=== PATIENT | male | born 2000 | race African-American/Black ===

== ENCOUNTER 2021-08-09 16:56 | Emergency (ER) | payer OTHER, SELFPAY ==
[2021-08-09 17:13] VITALS: BP 129/79; PULSE 74; RESP 18; TEMP 37.2; O2SAT 98; BMI 22.8
--- NOTE | 2021-08-09 17:20 | ED_ITS ---
HPI - Psych General Chief Complaint: Psychiatric Symptoms <Susan Bravo NP - Last Filed: 08/09/21 20:59> Stated Complaint: crisis <Susan Bravo NP - Last Filed: 08/09/21 20:59> Time Seen by Provider: 08/09/21 17:15 <Susan Bravo NP - Last Filed: 08/09/21 20:59> Source: patient and EMS <Susan Bravo NP - Last Filed: 08/09/21 20:59> Mode of arrival: EMS <Susan Bravo NP - Last Filed: 08/09/21 20:59> Limitations: no limitations <Susan Bravo NP - Last Filed: 08/09/21 20:59> History of Present Illness HPI Narrative: 20-year-old male with a past medical history of anxiety and depression not currently taking any medications here with complaints of suicidal thoughts which she has had for ?a long time and ?. He tells me there has been a culmination of events that have caused increased stress/anxiety. No plan. No homicidal ideations or hallucinations. No substance use. No physical complaints. Patient tells me that he currently does not have a therapist or psychiatrist is not on any medications. <Susan Bravo NP - Last Filed: 08/09/21 20:59> Related Data Home Medications: Home Medications Medication Instructions Recorded Confirmed No Known Home Meds 08/09/21 08/09/21 <Susan Bravo NP - Last Filed: 08/09/21 20:59> Allergies/Adverse Reactions: Allergies Allergy/AdvReac Type Severity Reaction Status Date / Time No Known Allergies Allergy Verified 08/09/21 17:17 [No Known Allergies*] <Susan Bravo NP - Last Filed: 08/09/21 20:59> Review of Systems Review of Systems: Yes all other systems are reviewed and are negative <Susan Bravo NP - Last Filed: 08/09/21 20:59> Constitutional: Constitutional: Reports no additional constitutional complaints, Denies body ache(s), Denies chills, Denies fever(s), Denies headache(s) and Denies weakness <Susan Bravo NP - Last Filed: 08/09/21 20:59> Eyes: Eyes: Reports no additional eye complaints and Denies change in vision <Susan Bravo NP - Last Filed: 08/09/21 20:59> ENT: Reports system reviewed and no additional complaints, except as documented, Denies dizziness, Denies headache(s), Denies nasal congestion, Denies nasal discharge and Denies neck pain <Susan Bravo NP - Last Filed: 08/09/21 20:59> Cardiovascular: Cardiovascular: Reports no additional cardiovascular complaints, Denies chest pain, Denies leg edema and Denies dyspnea <Susan Bravo NP - Last Filed: 08/09/21 20:59> Respiratory: Respiratory: Reports no additional respiratory complaints, Denies cough and Denies dyspnea <Susan Bravo [employer] - Last Filed: 08/09/21 20:59> Gastrointestinal: Gastrointestinal: Reports no additional gastrointestinal complaints, Denies abdominal pain, Denies diarrhea, Denies nausea and Denies vomiting <Susan Bravo [employer] - Last Filed: 08/09/21 20:59> Genitourinary: Genitourinary: Denies urinary incontinence <Susan Bravo NP - Last Filed: 08/09/21 20:59> Musculoskeletal: Musculoskeletal: Reports no additional musculoskeletal complaints, Denies back pain, Denies arthralgias, Denies joint swelling, Denies neck pain, Denies numbness and Denies tingling <Susan Bravo NP - Last Filed: 08/09/21 20:59> Integumentary/Breasts: Skin/Breast: Reports system reviewed and no additional complaints, except as docu and Denies rash <Susan Bravo NP - Last Filed: 08/09/21 20:59> Neurologic: Denies Abnormal speech present, Denies dizziness, Denies headache(s), Denies numbness, Denies tingling and Denies weakness <Susan Bravo [employer] - Last Filed: 08/09/21 20:59> Psychiatric: Psychiatric: Denies anxiety, Denies depression, Denies homicidal ideation and Reports suicidal ideation <Susan Bravo NP - Last Filed: 08/09/21 20:59> [facility] Past Medical History Attestation statement: The following information was validated with the patient. <Susan Bravo NP - Last Filed: 08/09/21 20:59> Source: old records reviewed and nursing notes reviewed <Susan Bravo NP - Last Filed: 08/09/21 20:59> Medical History: Medical History Anxiety Asthma Depression <Susan Bravo NP - Last Filed: 08/09/21 20:59> Social History Social History: Social History Alcohol intake: current Alcohol intake frequency: holidays/special occasions only Patient Tobacco Use Status: Current everyday Tobacco user Smoked in Last 30 Days: Yes Use of substances other than those prescribed or required for medical reasons: Yes Substance Use Type: Marijuana Advance Directives: No <Susan Bravo NP - Last Filed: 08/09/21 20:59> Physical Exam Vital Signs: Vital Signs: Last Vital Signs Temp 98.1 F 08/10/21 00:55 Pulse 70 08/10/21 00:55 Resp 18 08/09/21 19:43 BP 142/96 H 08/10/21 00:55 Pulse Ox 97 08/10/21 00:55 Body Mass Index 22.8 <Susan Bravo NP - Last Filed: 08/09/21 20:59> Vital Signs: Last Vital Signs Temp 98.1 F 08/10/21 00:55 Pulse 70 08/10/21 00:55 Resp 18 08/09/21 19:43 BP 142/96 H 08/10/21 00:55 Pulse Ox 97 08/10/21 00:55 Body Mass Index 22.8 <Alem Solares MD - Last Filed: 08/10/21 02:34> Const: General: cooperative, healthy appearing, comfortable and no acute distress <Susan Bravo NP - Last Filed: 08/09/21 20:59> Orientation/consciousness: patient oriented x3 <Susan Bravo NP - Last Filed: 08/09/21 20:59> Limitations: no limitations <Susan Bravo NP - Last Filed: 08/09/21 20:59> HENMT: Head: Yes normal to inspection <Susan Bravo NP - Last Filed: 08/09/21 20:59> Ears: hearing grossly normal bilaterally <Susan Bravo NP - Last Filed: 08/09/21 20:59> General nose exam: Normal external nose present <Susan Bravo NP - Last Filed: 08/09/21 20:59> Face and sinus: Yes normal facial exam <Susan Bravo NP - Last Filed: 08/09/21 20:59> Mouth: Normal oral and palatal mucosa present <Susan Bravo NP - Last Filed: 08/09/21 20:59> Throat: Yes posterior oropharynx normal <Susan Bravo NP - Last Filed: 08/09/21 20:59> Eyes: General: appearance normal, both eyes and all related structures <Susan Bravo NP - Last Filed: 08/09/21 20:59> Pupils: Equal, round and reactive pupils present <Susan Bravo NP - Last Filed: 08/09/21 20:59> Neck: Neck: Yes normal visual inspection <Susan Bravo NP - Last Filed: 08/09/21 20:59> Chest: Chest palpation & inspection: normal inspection of the chest <Susan Bravo NP - Last Filed: 08/09/21 20:59> Resp: Effort & Inspection: normal respiratory effort <Susan Bravo NP - Last Filed: 08/09/21 20:59> Auscultation: clear to auscultation bilaterally <Susan Bravo NP - Last Filed: 08/09/21 20:59> Cardio: Rate: regular rate <Susan Bravo NP - Last Filed: 08/09/21 20:59> Rhythm: regular rhythm <Susan Bravo NP - Last Filed: 08/09/21 20:59> Peripheral pulses: Peripheral pulses 2+ throughout <Susan Bravo NP - Last Filed: 08/09/21 20:59> GI: Inspection: Yes normal to inspection <Susan Bravo NP - Last Filed: 08/09/21 20:59> Palpation (GI): Soft to palpation and nontender <Susan Bravo NP - Last Filed: 08/09/21 20:59> Auscultation: normal bowel sounds <Susan Bravo NP - Last Filed: 08/09/21 20:59> Back/Spine/Pelvis: Thoracic/Lumbar Spine: thoracic and lumbar spine normal to inspection <Susan Bravo NP - Last Filed: 08/09/21 20:59> Skin: General skin exam: no rashes or lesions noted <Susan Bravo NP - Last Filed: 08/09/21 20:59> Neuro: General: patient oriented x3, no focal motor deficits and normal sensation to monofilament <Susan Bravo NP - Last Filed: 08/09/21 20:59> Cranial nerves: Yes Equal, round and reactive pupils present <Susan Bravo NP - Last Filed: 08/09/21 20:59> Cognition (Neuro): normal cognition <Susan Bravo NP - Last Filed: 08/09/21 20:59> Speech: No Abnormal speech present <Susan Bravo NP - Last Filed: 08/09/21 20:59> Gait exam (Neuro): Normal gait present <Susan Bravo NP - Last Filed: 08/09/21 20:59> Motor exam (neuro): 5/5 motor strength present throughout <Susan Bravo NP - Last Filed: 08/09/21 20:59> Extrem: General: Yes normal to inspection <Susan Bravo NP - Last F iled: 08/09/21 20:59> Course Course Course Narrative: 20-year-old male here with complaints of suicidal thoughts with no plan. No physical complaints. No concern for acute ingestion or trauma. Will order drug screen, labs, COVID screen. 1930-labs show mild leukopenia unchanged from previous, mild elevated LFTs unchanged from previous. Additional screening unremarkable. Crisis consult placed. Patient placed in position observation pending disposition 2100-Sign out to night team pending above. <Susan Bravo NP - Last Filed: 08/09/21 20:59> Reevaluation(s) Reevaluation #1: 20-year-old male was seen and evaluated initially for depression and possi ble SI, patient now feels better with depressed, no SI or HI or hallucination. Patient was evaluated by N and recommended partial psych hospitalization. Patient will be discharged home with family member patient feels safe to be discharged. <Alem Solares MD - Last Filed: 08/10/21 02:34> MDM - Psych Medical Records Attestation: I reviewed the patient's medical records. <Susan Bravo NP - Last Filed: 08/09/21 20:59> Lab Data Attestation: I reviewed the patient's lab results. <Susan Bravo NP - Last Filed: 08/09/21 20:59> Result diagrams: : 08/09/21 17:44 08/09/21 17:44 <Susan Bravo NP - Last Filed: 08/09/21 20:59> Labs: Lab Results 08/09/21 08/09/21 08/09/21 Range/Units 17:27 17:28 17:44 WBC 4.4 L (4.8-10.8) X10*3/uL RBC 5.02 (4.60-5.80) X10*6/uL Hgb 16.0 (14.0-18.0) g/dl Hct 45.2 (42-52) % MCV 90.0 (80-98) fL MCH 31.9 (27.0-33.0) pg MCHC 35.4 (31.0-36.0) g/dl RDW 11.7 (11.0-16.0) % Plt Count 257 (160-400) X10*3/uL MPV 10.0 (9.4-12.4) fL Immature Gran % (Auto) 0.0 (0.0-0.4) % Neut % (Auto) 57.6 (45-73) % Lymph % (Auto) 28.0 (20-40) % Schley % (Auto) 8.1 (2-11) % Eos % (Auto) 5.4 H (0-4) % Baso % (Auto) 0.9 (0-2) % Lymph # (Auto) 1.2 (1.2-4.9) X10*3/uL Schley # (Auto) 0.4 (0.1-1.2) X10*3/uL Eos # (Auto) 0.2 (0.0-0.4) X10*3/uL Baso # (Auto) 0.0 (0.0-0.2) X10*3/uL Abs Immat Gran (auto) 0.00 (0.00-0.03) X10*3/uL Absolute Neuts (auto) 2.6 (2.0-8.3) X10*3/uL Absolute Nucleated RBC 0.000 (0.0-0.012) X10*3/uL Nucleated RBC % (auto) 0.0 (0.0-0.2) /100WBC Sodium (135-145) mmol/L Potassium (3.3-5.1) mmol/L Chloride (96-108) mmol/L Carbon Dioxide (22-29) mmol/L Anion Gap (12-20) BUN (9-16) mg/dL Creatinine (0.5-1.4) mg/dL Estim Creat Clear Calc Estimated GFR Random Glucose (60-115) mg/dL Calcium (8.4-10.2) mg/dL Total Bilirubin (0.0-1.0) mg/dL Direct Bilirubin (0.0-0.5) mg/dL AST (5-37) U/L ALT (0-40) U/L Alkaline Phosphatase (39-117) U/L Total Protein (6.5-8.0) g/dL Albumin (3.5-5.0) g/dL Urine Opiates Screen Not Detected (Not Detect) Urine Fentanyl Screen Not Detected (Not Detect) Ur Barbiturates Screen Not Detected (Not Detect) Ur Phencyclidine Scrn Not Detected (Not Detect) Ur Amphetamines Screen Not Detected (Not Detect) U Benzodiazepines Scrn Not Detected (Not Detect) Urine Cocaine Screen Not Detected (Not Detect) U Marijuana (THC) Screen POSITIVE H (Not Detect) Ethyl Alcohol mg/dL COVID-19 ([facility]) Negative (Negative) COVID-19 Clin Com See Note 08/09/21 08/09/21 Range/Units 17:44 17:44 WBC (4.8-10.8) X10*3/uL RBC (4.60-5.80) X10*6/uL Hgb (14.0-18.0) g/dl Hct (42-52) % MCV (80-98) fL MCH (27.0-33.0) pg MCHC (31.0-36.0) g/dl RDW (11.0-16.0) % Plt Count (160-400) X10*3/uL MPV (9.4-12.4) fL Immature Gran % (Auto) (0.0-0.4) % Neut % (Auto) (45-73) % Lymph % (Auto) (20-40) % Schley % (Auto) (2-11) % Eos % (Auto) (0-4) % Baso % (Auto) (0-2) % Lymph # (Auto) (1.2-4.9) X10*3/uL Schley # (Auto) (0.1-1.2) X10*3/uL Eos # (Auto) (0.0-0.4) X10*3/uL Baso # (Auto) (0.0-0.2) X10*3/uL Abs Immat Gran (auto) (0.00-0.03) X10*3/uL Absolute Neuts (auto) (2.0-8.3) X10*3/uL Absolute Nucleated RBC (0.0-0.012) X10*3/uL Nucleated RBC % (auto) (0.0-0.2) /100WBC Sodium 140 (135-145) mmol/L Potassium 3.8 (3.3-5.1) mmol/L Chloride 105 (96-108) mmol/L Carbon Dioxide 26 (22-29) mmol/L Anion Gap 13 (12-20) BUN 10 (9-16) mg/dL Creatinine 1.08 (0.5-1.4) mg/dL Estim Creat Clear Calc 104.9 Estimated GFR > 60 Random Glucose 94 (60-115) mg/dL Calcium 9.9 (8.4-10.2) mg/dL Total Bilirubin 1.9 H (0.0-1.0) mg/dL Direct Bilirubin 0.7 H (0.0-0.5) mg/dL AST 15 (5-37) U/L ALT 7 (0-40) U/L Alkaline Phosphatase 51 (39-117) U/L Total Protein 7.7 (6.5-8.0) g/dL Albumin 4.6 (3.5-5.0) g/dL Urine Opiates Screen (Not Detect) Urine Fentanyl Screen (Not Detect) Ur Barbiturates Screen (Not Detect) Ur Phencyclidine Scrn (Not Detect) Ur Amphetamines Screen (Not Detect) U Benzodiazepines Scrn (Not Detect) Urine Cocaine Screen (Not Detect) U Marijuana (THC) Screen (Not Detect) Ethyl Alcohol < 10 mg/dL COVID-19 ([facility]) (Negative) COVID-19 Clin Com <Susan Bravo, [employer] - Last Filed: 08/09/21 20:59> Lab Results 08/09/21 08/09/21 08/09/21 Range/Units 17:27 17:28 17:44 WBC 4.4 L (4.8-10.8) X10*3/uL RBC 5.02 (4.60-5.80) X10*6/uL Hgb 16.0 (14.0-18.0) g/dl Hct 45.2 (42-52) % MCV 90.0 (80-98) fL MCH 31.9 (27.0-33.0) pg MCHC 35.4 (31.0-36.0) g/dl RDW 11.7 (11.0-16.0) % Plt Count 257 (160-400) X10*3/uL MPV 10.0 (9.4-12.4) fL Immature Gran % (Auto) 0.0 (0.0-0.4) % Neut % (Auto) 57.6 (45-73) % Lymph % (Auto) 28.0 (20-40) % Schley % (Auto) 8.1 (2-11) % Eos % (Auto) 5.4 H (0-4) % Baso % (Auto) 0.9 (0-2) % Lymph # (Auto) 1.2 (1.2-4.9) X10*3/uL Schley # (Auto) 0.4 (0.1-1.2) X10*3/uL Eos # (Auto) 0.2 (0.0-0.4) X10*3/uL Baso # (Auto) 0.0 (0.0-0.2) X10*3/uL Abs Immat Gran (auto) 0.00 (0.00-0.03) X10*3/uL Absolute Neuts (auto) 2.6 (2.0-8.3) X10*3/uL Absolute Nucleated RBC 0.000 (0.0-0.012) X10*3/uL Nucleated RBC % (auto) 0.0 (0.0-0.2) /100WBC Sodium (135-145) mmol/L Potassium (3.3-5.1) mmol/L Chloride (96-108) mmol/L Carbon Dioxide (22-29) mmol/L Anion Gap (12-20) BUN (9-16) mg/dL Creatinine (0.5-1.4) mg/dL Estim Creat Clear Calc Estimated GFR Random Glucose (60-115) mg/dL Calcium (8.4-10.2) mg/dL Total Bilirubin (0.0-1.0) mg/dL Direct Bilirubin (0.0-0.5) mg/dL AST (5-37) U/L ALT (0-40) U/L Alkaline Phosphatase (39-117) U/L Total Protein (6.5-8.0) g/dL Albumin (3.5-5.0) g/dL Urine Opiates Screen Not Detected (Not Detect) Urine Fentanyl Screen Not Detected (Not Detect) Ur Barbiturates Screen Not Detected (Not Detect) Ur Phencyclidine Scrn Not Detected (Not Detect) Ur Amphetamines Screen Not Detected (Not Detect) U Benzodiazepines Scrn Not Detected (Not Detect) Urine Cocaine Screen Not Detected (Not Detect) U Marijuana (THC) Screen POSITIVE H (Not Detect) Ethyl Alcohol mg/dL COVID-19 ([facility]) Negative (Negative) COVID-19 Clin Com See Note 08/09/21 08/09/21 Range/Units 17:44 17:44 WBC (4.8-10.8) X10*3/uL RBC (4.60-5.80) X10*6/uL Hgb (14.0-18.0) g/dl Hct (42-52) % MCV (80-98) fL MCH (27.0-33.0) pg MCHC (31.0-36.0) g/dl RDW (11.0-16.0) % Plt Count (160-400) X10*3/uL MPV (9.4-12.4) fL Immature Gran % (Auto) (0.0-0.4) % Neut % (Auto) (45-73) % Lymph % (Auto) (20-40) % Schley % (Auto) (2-11) % Eos % (Auto) (0-4) % Baso % (Auto) (0-2) % Lymph # (Auto) (1.2-4.9) X10*3/uL Schley # (Auto) (0.1-1.2) X10*3/uL Eos # (Auto) (0.0-0.4) X10*3/uL Baso # (Auto) (0.0-0.2) X10*3/uL Abs Immat Gran (auto) (0.00-0.03) X10*3/uL Absolute Neuts (auto) (2.0-8.3) X10*3/uL Absolute Nucleated RBC (0.0-0.012) X10*3/uL Nucleated RBC % (auto) (0.0-0.2) /100WBC Sodium 140 (135-145) mmol/L Potassium 3.8 (3.3-5.1) mmol/L Chloride 105 (96-108) mmol/L Carbon Dioxide 26 (22-29) mmol/L Anion Gap 13 (12-20) BUN 10 (9-16) mg/dL Creatinine 1.08 (0.5-1.4) mg/dL Estim Creat Clear Calc 104.9 Estimated GFR > 60 Random Glucose 94 (60-115) mg/dL Calcium 9.9 (8.4-10.2) mg/dL Total Bilirubin 1.9 H (0.0-1.0) mg/dL Direct Bilirubin 0.7 H (0.0-0.5) mg/dL AST 15 (5-37) U/L ALT 7 (0-40) U/L Alkaline Phosphatase 51 (39-117) U/L Total Protein 7.7 (6.5-8.0) g/dL Albumin 4.6 (3.5-5.0) g/dL Urine Opiates Screen (Not Detect) Urine Fentanyl Screen (Not Detect) Ur Barbiturates Screen (Not Detect) Ur Phencyclidine Scrn (Not Detect) Ur Amphetamines Screen (Not Detect) U Benzodiazepines Scrn (Not Detect) Urine Cocaine Screen (Not Detect) U Marijuana (THC) Screen (Not Detect) Ethyl Alcohol < 10 mg/dL COVID-19 ([facility]) (Negative) COVID-19 Clin Com <Alem Solares MD - Last Filed: 08/10/21 02:34> Discharge Plan Discharge Clinical Impression: Suicidal ideation <Susan Bravo NP - Last Filed: 08/09/21 20:59> Patient Disposition: Home, Self-Care <Susan Bravo NP - Last Filed: 08/09/21 20:59> Instructions: Depression (ED) <Susan Bravo NP - Last Filed: 08/09/21 20:59> Prescriptions: No Action No Known Home Meds RF: 0 <Susan Bravo NP - Last Filed: 08/09/21 20:59> Referrals: Physician,None [Primary Care Provider] - 2 days <Susan Bravo NP - Last Filed: 08/09/21 20:59>
[2021-08-09 17:53] LABS: MANUAL DIFF FLAG NO
[2021-08-09 18:02] LABS: Basophils Percent Auto 0.9 % (0-2); Eosinophils Absolute Auto 0.2 X10*3/uL (0.0-0.4); Eosinophils Percent Auto 5.4 % (0-4); Hematocrit 45.2 % (42-52); Lymphocytes Absolute Auto 1.2 X10*3/uL (1.2-4.9); Mean Corpuscular HGB Conc 35.4 g/dl (31.0-36.0); Mean Corpuscular Hemoglobin 31.9 pg (27.0-33.0); Monocytes Absolute Auto 0.4 X10*3/uL (0.1-1.2); Monocytes Percent Auto 8.1 % (2-11); Neutrophils Absolute Auto 2.6 X10*3/uL (2.0-8.3); Neutrophils Percent Auto 57.6 % (45-73); Platelet Count 257 X10*3/uL (160-400); Red Blood Count 5.02 X10*6/uL (4.60-5.80); Red Cell Distribution Width 11.7 % (11.0-16.0); White Blood Count 4.4 X10*3/uL (4.8-10.8)
[2021-08-09 18:10] LABS: Ethanol < 10 mg/dL
[2021-08-09 18:12] LABS: COVID-19 Test Negative (Negative); IDNOW Serial# 9DD0AD1C
[2021-08-09 18:13] LABS: Amphetamine Screen Urine Not Detected (Not Detect); Barbiturates, Urine Not Detected (Not Detect); Benzodiazepines Screen Urine Not Detected (Not Detect); Cannabinoid Screen Urine POSITIVE (Not Detect); Cocaine Screen Urine Not Detected (Not Detect); Fentanyl, urine Not Detected (Not Detect); Opiate Screen Urine Not Detected (Not Detect); Phencyclidine Screen Urine Not Detected (Not Detect)
[2021-08-09 18:15] LABS: Alanine Aminotransferase 7 U/L (0-40); Albumin Level 4.6 g/dL (3.5-5.0); Alkaline Phosphatase 51 U/L (39-117); Anion Gap 13 (12-20); Aspartate Amino Transferase 15 U/L (5-37); Bilirubin Direct 0.7 mg/dL (0.0-0.5); Bilirubin Total 1.9 mg/dL (0.0-1.0); Blood Urea Nitrogen 10 mg/dL (9-16); Calcium 9.9 mg/dL (8.4-10.2); Carbon Dioxide 26 mmol/L (22-29); Chloride 105 mmol/L (96-108); Creatinine Clr Calc Pharmacy 104.9; Estimated Glomerular Filt Rate > 60; Glucose Random 94 mg/dL (60-115); Potassium 3.8 mmol/L (3.3-5.1); Sodium 140 mmol/L (135-145); Total Protein 7.7 g/dL (6.5-8.0)
--- NOTE | 2021-08-09 18:25 | PC.NURSE ---
patient a&ox3, calm/cooperative, pt ate dinner, labs obtained, covid swab performed, urine obtained, bhn referral put into system, pt currently in room watching tv, will continue to monitor.
--- NOTE | 2021-08-09 18:44 | PC.NURSE ---
lenon called and stated the patient will not be seen until after 11pm tonight.
[2021-08-09 19:43] VITALS: BP 128/82; PULSE 82; RESP 18; TEMP 36.4; O2SAT 99
[2021-08-10 00:55] VITALS: BP 142/96; PULSE 70; TEMP 36.7; O2SAT 97
== END 2021-08-10 02:42 | disposition home or self-care (01) ==
PROVIDERS: Nurse Practitioner Family; Emergency Provider Internal Medicine
DX: F33.1 Major depressive disorder, recurrent, moderate (principal); R45.851 Suicidal ideations; F12.90 Cannabis use, unspecified, uncomplicated; Z20.822 Contact with and (suspected) exposure to COVID-19; Z79.899 Other long term (current) drug therapy; F17.210 Nicotine dependence, cigarettes, uncomplicated; Z71.6 Tobacco abuse counseling
CPT/HCPCS: 36415; 80048; 80076; 80307; 82077; 85025; 87635; 99285